=== PATIENT | male | born 1945 | race Caucasian/White ===

== ENCOUNTER → 2016-11-17 | Outpatient (CLI) | payer MEDICARE ==
[~2016-11-17] MED LIST: ACID REDUCER150 MG PO; AMOXICILLIN500 M1 PO; ASPIRIN LO-DOSE81 MG PO; BIAXIN500 MG PO; BUSPAR10 MG PO; CLARITIN10 MG PO; COLACE100 MG PO; FEOSOL325 MG PO; GLUCOPHAGE1000 MG PO; IMDUR30 MG PO; LANTUS (IN100 UNIT/M SUB-Q; LANTUS SOL100 UNIT/1 SUB-Q; LIPITOR80 MG PO; LOPRESSOR25 MG PO; NITROSTAT0.4 MG SL; PLAVIX75 MG PO; PRILOSEC20 MG PO; PRINIVIL (ZESTRI5 MG PO; ZITHROMAX250 MG PO; ZOLOFT50 MG PO
== END | disposition disaster alternative care site (69) ==
LOC: LFPA 09:18
DX: A09 Infectious gastroenteritis and colitis, unspecified (principal)

== ENCOUNTER 2017-02-06 21:30 | Emergency (ER) | payer MEDICARE ==
--- NOTE | ~2017-02-06 | ER ---
PATIENT'S NAME: CHAYITO MOON [facility] AGE: 71 Y [address] ROOM: [place] [address] LOCATION: [facility] ADMIT DATE: 02/06/2017 ER/Outpatient Report DISCHARGE DATE: 02/07/2017 FAMILY PHYSICIAN: Lelo Stephenson ATTENDING PHYSICIAN: Tony Bloom Admission date and time documented on the medical record. I saw the patient at 2140 hours. CHIEF COMPLAINT: Cough, chest pressure, fever. HISTORY OF PRESENT ILLNESS: This patient is a 71-year-old male, who presents with 2-day history of illness. He has had chest pressure, discomfort, sweats, low-grade fever. He had generalized weakness and shakiness. No chest pain now. The patient is short of breath, cough nonproductive. No abdominal pain, nausea, vomiting, or diarrhea. No urinary frequency, urgency, or dysuria. No lightheadedness, dizziness. No syncope. No fall or trauma. No headache, eyes, ears, nose, throat, neck, or spine pain. No joint or muscle swelling, redness, or pain. No skin eruptions or rash. He does have insulin-dependent diabetes mellitus type 2. He does have some anxiety, depression, and bipolar disorder. No neuro changes. HOME MEDICATIONS: See attached medication list. ALLERGIES: NONE. SOCIAL HISTORY: The patient smokes a pack of cigarettes per day. Nondrinker. SIGNIFICANT PAST MEDICAL HISTORY: Atherosclerotic ischemic heart disease with coronary artery disease, insulin- dependent diabetes mellitus type 2, tobacco abuse, dyslipidemia, COPD, depression and anxiety with bipolar disorder. OPERATIONS: Hemorrhoid surgery, open reduction and internal fixation of right femur fracture, cardiac catheterization with PTCA and stenting. Recently, he had a cardiac stress test a couple of days ago, results unknown. REVIEW OF SYSTEMS: All systems reviewed by me are negative with the exception of those discussed PATIENT'S NAME: CHAYITO MOON [facility] AGE: 71 Y [address] ROOM: [place] [address] LOCATION: [facility] ADMIT DATE: 02/06/2017 ER/Outpatient Report DISCHARGE DATE: 02/07/2017 FAMILY PHYSICIAN: Lelo Stephenson ATTENDING PHYSICIAN: Tony Bloom in the history of present illness. PHYSICAL EXAMINATION: VITAL SIGNS: Temperature 100.9, tympanic; pulse 98; respirations 18; blood pressure 164/53; O2 saturation on room air is 97%. HEAD: Normocephalic. EYES, EARS, NOSE, THROAT: Clear. Mucous membranes moist. NECK: Negative. LUNGS: Decreased breath sounds diffusely. Coarse cough. Coarse rhonchi. No wheezes. No rales. HEART: Regular. Pulses are palpable. ABDOMEN: Soft, nondistended, and nontender. Good bowel tones. No organomegaly or abnormal masses palpable. EXTREMITIES: Without peripheral edema, cyanosis, or deformity. Neurovascularly intact. SKIN: Clear. No skin eruptions or rash. IMAGING DATA: Chest x-ray showed no acute infiltrate. We will review x-ray with the radiologist. EKG showed sinus rhythm. No acute ST elevation, ischemic change, or arrhythmia. LABORATORY DATA: Procalcitonin was 0.11. Lactate was 2.1. White count was 12,200 with 71 segs, 8 lymphocytes, 20 monos, hemoglobin is 8.3 with hematocrit 26.3, platelet count is 275,000. PTT was 31, prothrombin time is 11.3 with an INR of 1.08. CMS was normal, except for an elevated glucose at 295, low calcium of 8.4, magnesium was 1.8, CPK was 42. Lhlfe-ff-fjbn cardiac enzymes were normal. Urine showed rare whites, negative reds, rare epithelial cells, negative bacteria per high-powered field. CRP was 17.5. Serum acetone was negative. Venous pH was 7.46. ProBNP was 308. D-dimer was 0.59. I did start the patient on IV normal saline and fluids. I did give him Rocephin 1 g IV here in the emergency department. IMPRESSION: 1. Exacerbation of chronic obstructive pulmonary disease with fever, chills, PATIENT'S NAME: CHAYITO MOON [facility] AGE: 71 Y [address] ROOM: [place] [address] LOCATION: [facility] ADMIT DATE: 02/06/2017 ER/Outpatient Report DISCHARGE DATE: 02/07/2017 FAMILY PHYSICIAN: Lelo Stephenson ATTENDING PHYSICIAN: Tony Bloom sweats, cough, chest pressure. 2. Anemia with a hemoglobin of 8.3 and hematocrit of 26.3. 3. Insulin-dependent diabetes mellitus type 2, blood glucose 295. 4. Atherosclerotic ischemic heart disease with coronary artery disease, history of angina. 5. Tobacco abuse. 6. Dyslipidemia. 7. Depression and anxiety with bipolar disorder. PLAN: I did give the patient Rocephin 1 g IV in the emergency room, hydrated the patient, discharged home. Observation. Activity as tolerated. Continue present home medications and care. Fluid and diet as tolerated. We will send him home on Z-Scott, take as directed. He is to follow up with his personal physician in 2 days on Saturday. Return to the emergency room if needed. Discussion ensued with the patient and his daughter regarding my findings and recommendations, they understand. MD COBY CALDERON/modl /[id number] d: 02/07/17 0513 t: 02/07/17 1809, OUTPATIENT REPORT
[~2017-02-06 21:30] MED LIST changes: -AMOXICILLIN500 M1 PO; -BIAXIN500 MG PO; -COLACE100 MG PO; -FEOSOL325 MG PO; -LANTUS (IN100 UNIT/M SUB-Q; -LOPRESSOR25 MG PO; -PRILOSEC20 MG PO; -ZITHROMAX250 MG PO
[2017-02-06 21:59] LABS: BICARBONATE 24.9 mmol/L (18.0-23.0); PCO2 35 mmHg (35-45); PO2 36 mmHg (80-90)
[2017-02-06 22:02] LABS: BASOPHIL % 0.1 %; HEMATOCRIT 26.3 % (37.0-53.0); HEMOGLOBIN 8.3 g/dL (11.0-16.0); IMMATURE GRANULOCYTE # 0.1 K/uL (0.0-0.3); IMMATURE GRANULOCYTE % 0.5 %; LYMPHOCYTE % 8.4 %; MCH 23.2 pg (27.0-34.0); MCHC 31.6 gm/dL (32.0-36.5); MCV 73.7 fl (83.0-98.0); MONOCYTE # 2.4 K/uL (0.0-1.0); MONOCYTE % 19.7 %; MPV 11.1 fl (9.4-12.4); NEUTROPHIL # (ANC) 8.7 K/uL (1.4-9.0); NEUTROPHIL % 71.3 %; NRBC % 0 /100WBC (0-0.00); PLATELET COUNT 275 K/uL (150-450); RBC 3.57 M/uL (3.50-5.50); WBC 12.2 K/uL (4.0-11.0)
[2017-02-06 22:07] LABS: BILIRUBIN URINE NEGATIVE (NEGATIVE); BLOOD URINE NEGATIVE /UL (NEGATIVE); COLOR URINE YELLOW (YELLOW); GLUCOSE URINE 1000 mg/dL (NEGATIVE); KETONE URINE NEGATIVE (NEGATIVE); LEUKOCYTES URINE NEGATIVE /UL (NEGATIVE); NITRITE URINE NEGATIVE (NEGATIVE); PROTEIN URINE 15 mg/dL (NEGATIVE); TURBIDITY URINE CLEAR (CLEAR); UROBILINOGEN URINE 1 mg/dL (NORMAL)
[2017-02-06 22:11] LABS: INR - (THERAPEUTIC) 1.08 (0.92-1.07); PROTIME 11.3 SECONDS (9.8-11.4); PTT 31 SECONDS (25-32)
[2017-02-06 22:23] LABS: ALK PHOS 134 IU/L (33-138); ALT 18 IU/L (12-78); AST 14 IU/L (10-40); BLOOD UREA NITROGEN 17 mg/dL (6-24); CALCIUM 8.4 mg/dL (8.5-10.5); CHLORIDE 105 mMol/L (96-110); CO2 23 mMol/L (22-32); CPK 42 IU/L (35-332); CREATININE 1.1 mg/dL (0.6-1.3); ESTIMATED GFR (MDRD EQUATION) > 60; MAGNESIUM 1.8 mg/dL (1.8-2.6); SODIUM 135 mMol/L (135-145); TOTAL BILIRUBIN 0.6 mg/dL (0.0-1.5); TOTAL PROTEIN 7.5 g/dL (6.0-8.4)
[2017-02-06 22:26] LABS: BACTERIA URINE NEGATIVE (NEGATIVE); EPITHELIAL URINE RARE #/HPF (NEGATIVE); RBC URINE NEGATIVE #/HPF (NEGATIVE); WBC URINE RARE #/HPF (NEGATIVE)
[2017-02-08] MEDS ORDERED: LANTUS (IN100 UNIT/M SUB-Q (17:06)
[2017-02-08] MEDS ORDERED: ZITHROMAX250 MG PO (17:08)
== END 2017-02-07 00:49 | disposition disaster alternative care site (69) ==
LOC: GMED 21:30
PROVIDERS: Emergency Medicine
DX: J44.1 Chronic obstructive pulmonary disease with (acute) exacerbation (principal); D64.9 Anemia, unspecified; E11.9 Type 2 diabetes mellitus without complications; I25.10 Atherosclerotic heart disease of native coronary artery without angina pectoris; E78.5 Hyperlipidemia, unspecified; F31.9 Bipolar disorder, unspecified; F41.9 Anxiety disorder, unspecified; F17.210 Nicotine dependence, cigarettes, uncomplicated; Z98.890 Other specified postprocedural states; Z79.82 Long term (current) use of aspirin; Z79.899 Other long term (current) drug therapy; Z79.4 Long term (current) use of insulin; Z95.5 Presence of coronary angioplasty implant and graft
CPT/HCPCS: J0696; J7030; J7050

== ENCOUNTER → 2017-02-06 | Outpatient (CLI) | payer MEDICARE | END | disposition disaster alternative care site (69) | LOC: GAMB 21:13 | DX: E11.65 Type 2 diabetes mellitus with hyperglycemia (principal); R07.89 Other chest pain; Z79.82 Long term (current) use of aspirin; Z79.899 Other long term (current) drug therapy | CPT/HCPCS: A0425; A0427 ==

== ENCOUNTER → 2017-02-11 | Day surgery (SDC) | payer MEDICARE ==
[~2017-02-11] VITALS: Ht 175.3 cm; Wt 79.3 kg
[~2017-02-11] MED LIST changes: +AMOXICILLIN500 M1 PO; +BIAXIN500 MG PO; +COLACE100 MG PO; +FEOSOL325 MG PO; +LANTUS (IN100 UNIT/M SUB-Q; +LOPRESSOR25 MG PO; +PRILOSEC20 MG PO; +ZITHROMAX250 MG PO
== END ==
LOC: GPOC 02-08 17:00 → GEND 07:55 → GPOC 17:00
PROC: 0DB88ZX Excision of Small Intestine, Via Natural or Artificial Opening Endoscopic, Diagnostic (ICD-10-PCS; principal; 2017-02-11)
PROC: 0DB68ZX Excision of Stomach, Via Natural or Artificial Opening Endoscopic, Diagnostic (ICD-10-PCS; 2017-02-11)
PROC: 0DBH8ZX Excision of Cecum, Via Natural or Artificial Opening Endoscopic, Diagnostic (ICD-10-PCS; 2017-02-11)
DX: D12.0 Benign neoplasm of cecum (principal); K29.60 Other gastritis without bleeding; K57.30 Diverticulosis of large intestine without perforation or abscess without bleeding; D64.9 Anemia, unspecified; I10 Essential (primary) hypertension; I25.10 Atherosclerotic heart disease of native coronary artery without angina pectoris; J43.9 Emphysema, unspecified; K21.9 Gastro-esophageal reflux disease without esophagitis; E11.9 Type 2 diabetes mellitus without complications; E78.00 Pure hypercholesterolemia, unspecified; F17.210 Nicotine dependence, cigarettes, uncomplicated; Z79.82 Long term (current) use of aspirin; Z79.4 Long term (current) use of insulin; Z79.899 Other long term (current) drug therapy
CPT/HCPCS: J2001; J7030

== ENCOUNTER 2017-02-13 09:00 | Day surgery (SDC) | payer MEDICARE ==
[~2017-02-13] VITALS: Ht 175.3 cm; Wt 81.0 kg
[~2017-02-13 09:00] MED LIST changes: -AMOXICILLIN500 M1 PO; -BIAXIN500 MG PO; -COLACE100 MG PO; -FEOSOL325 MG PO; -LOPRESSOR25 MG PO; -PRILOSEC20 MG PO
== END 2017-02-13 13:05 | disposition disaster alternative care site (69) ==
LOC: GSIP 09:00 → GOPP 09:00 → GEND 09:00
PROC: 0DBL8ZX Excision of Transverse Colon, Via Natural or Artificial Opening Endoscopic, Diagnostic (ICD-10-PCS; principal; 2017-02-13)
PROC: 0DBK8ZX Excision of Ascending Colon, Via Natural or Artificial Opening Endoscopic, Diagnostic (ICD-10-PCS; 2017-02-13)
DX: D12.2 Benign neoplasm of ascending colon (principal); D12.3 Benign neoplasm of transverse colon; E11.9 Type 2 diabetes mellitus without complications; K21.9 Gastro-esophageal reflux disease without esophagitis; I25.10 Atherosclerotic heart disease of native coronary artery without angina pectoris; I10 Essential (primary) hypertension; E78.00 Pure hypercholesterolemia, unspecified; J43.9 Emphysema, unspecified; F41.9 Anxiety disorder, unspecified; F32.9 Major depressive disorder, single episode, unspecified; E78.5 Hyperlipidemia, unspecified; F17.210 Nicotine dependence, cigarettes, uncomplicated; Z98.890 Other specified postprocedural states; Z79.82 Long term (current) use of aspirin; Z79.4 Long term (current) use of insulin; Z79.891 Long term (current) use of opiate analgesic; Z79.899 Other long term (current) drug therapy
CPT/HCPCS: J1610; J2001; J7030

== ENCOUNTER 2017-02-20 10:53 | Inpatient (IN) | payer MEDICARE ==
[~2017-02-20] VITALS: Ht 175.3 cm; Wt 78.6 kg
--- NOTE | ~2017-02-20 | ER ---
PAT[facility]: [facility] AGE: 71 Y [address] ROOM: [place] [id number] LOCATION: [facility] ADMIT DATE: 02/20/2017 ER/Outpatient Report DISCHARGE DATE: FAMILY PHYSICIAN: Lelo Stephenson ATTENDING PHYSICIAN: Farzaneh SUAZO Time of Arrival: 1053 hours. Time of Evaluation: 1053 hours. CHIEF COMPLAINT: Rectal bleeding and syncope. HISTORY OF PRESENT ILLNESS: The patient is a 71-year-old male who presents to the emergency department today with a chief complaint of syncope and rectal bleeding. He has had bright red blood per rectum for few days. It is progressively worsened today. He did have a syncopal episode when the patient passed out. He does report subjective fevers. No chills. Subsequent nausea. No vomiting. No diarrhea or constipation. No problems urinating. No back pain. No cough. No chest pain. No shortness of breath. Does have mild headache. The patient recently underwent an EGD and colonoscopy on 02/11/2017. PAST MEDICAL HISTORY: 1. Atherosclerotic coronary artery disease. 2. Insulin-dependent diabetes mellitus, type 2. 3. Dyslipidemia. 4. COPD. 5. Depression. 6. Anxiety. 7. Bipolar. 8. H. pylori. 9. Gastritis. PAST SURGICAL HISTORY: 1. Hemorrhoid. 2. ORIF, right femur. 3. Heart catheterization with PTCA and stenting. 4. Cardiac stress test. SOCIAL HISTORY: The patient smokes half pack per day for 60 years. Denies any alcohol or illicit drug use. ALLERGIES: NO KNOWN DRUG ALLERGIES. PATIENT'S NAME: [facility] AGE: 71 Y [address] ROOM: [id number] [place] [id number] LOCATION: [facility] ADMIT DATE: 02/20/2017 ER/Outpatient Report DISCHARGE DATE: FAMILY PHYSICIAN: Lelo Stephenson ATTENDING PHYSICIAN: Farzaneh SUAZO MEDICATIONS: Please see list. PRIMARY CARE DOCTOR: MARCIN Aguilar REVIEW OF SYSTEMS: All systems are reviewed by myself and are negative with the exception of those discussed in the HPI and past medical history. PHYSICAL EXAMINATION: VITAL SIGNS: Weight 79.5 kg. Blood pressure 117/62, pulse 82, respiratory rate 17, temperature 95.9, and oxygen saturation 98% on room air. GENERAL: The patient is a 71-year-old male, who appears pale. HEENT: Normocephalic and atraumatic. Pupils are equal, round, and reactive to light. Mucous membranes moist. Conjunctivae are pale. NECK: Supple. There is no nuchal rigidity. CARDIOVASCULAR: Regular rate and rhythm. No murmurs, rubs, or gallops. LUNGS: Clear to auscultation bilaterally. No wheezes, rales, or rhonchi. ABDOMEN: Soft, nontender, and nondistended. No rebound, rigidity, or guarding. MUSCULOSKELETAL: The patient moves all 4 extremities. SKIN: Warm and dry. LABORATORY DATA AND X-RAYS: EKG is obtained, is interpreted by myself at 1114 hours shows sinus rhythm with a rate of 80, normal axis, KS interval 235, QTc of 461, no ST elevation, ST depression, or T-wave inversion. CBC: White blood cell count 12.7, hemoglobin 5.0, hematocrit 17.4, and platelets 503,000. PTT is normal. PTT is 11.7. INR is 1.1. CT scan of the brain is obtained which is negative. Lactate is 5.7. CMP; unremarkable except for chloride of 114, CO2 is 17, BUN 26, creatinine normal, and glucose 201. Cardiac enzymes are normal. Procalcitonin is less than 0.05. CT scan of the brain is obtained. I have discussed the results with the radiologist, shows no acute process. IMPRESSION: 1. Acute blood loss anemia. 2. Gastrointestinal bleed. 3. Recent esophagogastroduodenoscopy and colonoscopy. 4. Lactic acidosis. 5. Critical care time of 32 minutes. 6. Initial visit. EMERGENCY DEPARTMENT COURSE: PATIENT'S NAME: CHAYITO MOON [facility] AGE: 71 Y [address] ROOM: [address] [address] LOCATION: [facility] ADMIT DATE: 02/20/2017 ER/Outpatient Report DISCHARGE DATE: FAMILY PHYSICIAN: Lelo Stephenson ATTENDING PHYSICIAN: Farzaneh SUAZO The patient was brought back to the examination room. Seen and evaluated by myself. IV was established. Laboratory analysis and imaging are obtained as described above. I have discussed other results with the patient. The patient did have a syncopal episode when EMS arrived. The patient is typed and crossed for 4 units. He is written for transfusion. He is given a liter of normal saline. I have discussed the results with the patient as well as his family. The patient does report still feeling weak. I have discussed the case with Dr. Suazo. He has seen and evaluated the patient down here in the emergency department. Dr. Gonzalez was consulted. He has recommended ICU admission for further evaluation, treatment, and management. The patient did require a cumulative critical care time of 32 minutes. This did include talking with family, talking with consultants, ordering tests, reviewing tests, as well as close monitoring of the patient with active GI bleeding and hemoglobin of 5.0. DISPOSITION: The patient is admitted to the intensive care unit in stable condition. DO DARIO SAMUELS/modl /[id number] d: 02/20/172145 t: 02/25/172032, OUTPATIENT REPORT
--- NOTE | ~2017-02-20 | DS ---
PATIENT'S NAME: CHAYITO MOON [facility] AGE: 71 Y [address] ROOM: [id number] [place] [address] LOCATION: [facility] ADMIT DATE: 02/20/2017 Discharge Summary DISCHARGE DATE: 02/22/2017 FAMILY PHYSICIAN: Lelo Stephenson ATTENDING PHYSICIAN: Farzaneh Suazo FINAL/DISCHARGE DIAGNOSES: 1. Acute lower gastrointestinal bleed. 2. Acute blood loss anemia. 3. Coronary artery disease. 4. Diabetes mellitus, type 2. 5. Dyslipidemia. CONSULTATIONS: Consultants on the case: Dr. Gonzalez. PROCEDURES PERFORMED: Colonoscopy and EGD per Dr. Gonzalez. Please refer to those reports. HOSPITAL COURSE: Please see details of admission in H and P by Dr. Suazo. Briefly, the patient is a 71-year-old male, who presented with lightheadedness and acute anemia. The patient recently had an EGD and colonoscopy done with polyp removal. The patient's aspirin and Plavix were resumed 2 days postprocedure as per his history of coronary artery disease and stent placement. On admission, the patient did undergo a tagged red blood cell bleeding scan and was transfused 4 units. H and Hs were monitored every hour initially, and GI consultation was obtained. Protonix was utilized for GI prophylaxis. We did get routine lactate levels due to severe elevation. The patient's diabetes was covered with sliding scale insulin. His Levemir was cut in half secondary to his n.p.o. status. GI evaluation was done on 02/20/2017. Colonoscopy was anticipated on the , and the patient was prepped adequately prior to procedure. Please refer to that operative note. Postprocedure, patient was started back on a clear liquid diet. His laboratories were serially monitored. We continued symptomatic treatment further on the and on the , the patient was stable. His hemoglobin had gone from 9.2 to 8.4 to 7.8 to 8.5. It was felt that the patient could safely be discharged. He would not be receiving any anticoagulation or antiplatelet therapy for at least one week post-hospitalization. Dr. Gonzalez visited with the patient about his condition. Stated that he had also been in touch with Cardiology and the plan was implemented. The patient was able to verbalize understanding of these discharge instructions. LABORATORY DATA AND IMAGING STUDIES: Diagnostics: Single view of the chest shows a small left pleural effusion with adjacent lung consolidation in the lateral lower right lung. Heart size and pulmonary PATIENT'S NAME: CHAYITO MOON [facility] AGE: 71 Y [address] ROOM: [id number] [place], [place] [address] LOCATION: [facility] ADMIT DATE: 02/20/2017 Discharge Summary DISCHARGE DATE: 02/22/2017 FAMILY PHYSICIAN: Lelo Stephenson ATTENDING PHYSICIAN: Farzaneh Suazo vascularity within normal limits. CT of the head without contrast was within normal limits. Bleeding scan was positive for gastrointestinal bleed with bleeding visualized on the right side of the colon, appearing to originate in the area of the cecum or adjacent ascending colon. Accu-Cheks ranged from 85 to 223. Lactate level on admission was 5.7. It trended down to 1.3 on the day of discharge. On admission, sodium was 144, potassium 5.0, chloride 114, bicarbonate 17, glucose was 201, BUN 26, and creatinine 1.0. Cardiac enzymes and proBNP were all within normal limits. Hemoglobin A1c was 6.5. On admission, white blood cell count was 12.7, hemoglobin was 5.0, hematocrit was 17.4, and platelets were 503,000. Prothrombin time of 11.7, INR of 1.1. Post transfusion, hemoglobin was 9.2, had trended back down to 7.8, and was 8.5, on the day of discharge. DISCHARGE INSTRUCTIONS: 1. The patient was discharged to home. 2. Diet is to advance as tolerated. 3. Activity: No straining and no driving until followup appointment. 4. The patient will see MARCIN Aguilar on 02/27/2017 at 2:30 p.m. 5. He will follow up with Dr. Gonzalez in one year for a repeat colonoscopy. DISCHARGE MEDICATIONS: 1. Amoxicillin 1000 mg twice daily. 2. Lipitor 80 mg daily. 3. Biaxin 500 mg twice daily. 4. Lantus 14 units subcutaneous twice daily. 5. Prilosec 40 mg daily. 6. Metformin 1000 mg twice daily. 7. BuSpar 30 mg daily. 8. Zoloft 50 mg daily. 9. Claritin 10 mg daily. 10. Aspirin 81 mg, hold until re-evaluation, but may resume 81 mg daily in 1 week. 11. Plavix 75 mg. The patient is to hold indefinitely until Cardiology follow up. 12. Imdur 30 mg daily. 13. Nitrostat 0.4 mg sublingual as needed. 14. Lopressor 25 mg twice daily. 15. Ferrous sulfate 325 mg 1 p.o. twice daily. 16. Colace 100 mg p.o. b.i.d. p.r.n. We do appreciate participating in this patient's care, and thank you very much for the ability to serve him while hospitalized at [facility]. Time spent coordinating details of discharge was 37 minutes of which was spent PATIENT'S NAME: CHAYITO MOON [facility] AGE: 71 Y [address] ROOM: [id number] [place], [place] [address] LOCATION: [facility] ADMIT DATE: 02/20/2017 Discharge Summary DISCHARGE DATE: 02/22/2017 FAMILY PHYSICIAN: Lelo Stephenson ATTENDING PHYSICIAN: Farzaneh Suazo coordinating with consulting physicians and Care Management, completion of medication reconciliation, and education to the patient and family on the above-mentioned diagnoses. MARCIN DYER FOR JULIAN CEE MD JAN/modl /[id number] d: 02/23/17 1453 t: 03/12/17 1531, DISCHARGE SUMMARY
--- NOTE | ~2017-02-20 | HP ---
PATIENT'S NAME: SARAI [facility] AGE: 71 Y [address] ROOM: [place] [address] LOCATION: [facility] ADMIT DATE: 02/20/2017 History & Physical DISCHARGE DATE: FAMILY PHYSICIAN: Lelo Stephenson ATTENDING PHYSICIAN: Farzaneh RON DATE OF SERVICE: CHIEF COMPLAINT: Acute blood loss anemia secondary to GI bleed. HISTORY OF PRESENT ILLNESS: The patient is a 71-year-old gentleman with past medical history of CAD, status post last stent placed 4 years ago, on aspirin and Plavix; diabetes mellitus type 2; and hypertension, who presents here with GI bleed. The patient reports that for the past 2 days or so, he was having some melanotic stools initially, and today he reports of bright red blood per rectum. The patient reports that he had multiple episodes of bright red blood per rectum today and also was orthostatic. He said the patient reports that he could not stand up due to dizziness. The patient was found by his daughter today at home crawling on the floor as he cannot stand up due to dizziness. The patient was brought into the emergency department. On initial evaluation, the patient was found to have a hemoglobin level of 5. The patient currently denies chest pain, shortness of breath, fever, chills, abdominal pain, diarrhea, and productive cough. Of note, the patient had EGD done on February 11, which showed gastritis on the antrum and the other findings were normal. The patient also had a colonoscopy done on February 13, which shows diverticulosis with large polyp seen in the ascending colon. The polyp was approximately 2 cm and had cold biopsy polypectomy. Before these procedures, the patient's aspirin and Plavix were held; however, his aspirin and Plavix were continued after 2 days of this procedure. Also of note, the patient reports that he was started on antibiotics, which I presumed to be for H. pylori. He is started on Biaxin, amoxicillin, and Prilosec. The patient reports that he was called in with the biopsy results and was told to take these medications. MEDICAL HISTORY: Diabetes mellitus type 2; hypertension; CAD, status post stent; also tobacco use. SURGICAL HISTORY: Colonoscopy, right femur fracture, EGD, and wrist surgery. FAMILY HISTORY: PATIENT'S NAME: SARAI [facility] AGE: 71 Y [address] ROOM: [address] [place] [address] LOCATION: [facility] ADMIT DATE: 02/20/2017 History & Physical DISCHARGE DATE: FAMILY PHYSICIAN: Lelo Stephenson ATTENDING PHYSICIAN: Farzaneh RON Father had throat cancer. Mother had diabetes mellitus type 2. SOCIAL HISTORY: The patient reports that he has been smoking cigarettes since the age 6. The patient currently is 71-year-old. 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 MEDICATIONS: Currently being reconciled. REVIEW OF SYSTEMS: All systems have been reviewed and everything is negative except what mentioned in the HPI. PHYSICAL EXAMINATION: VITAL SIGNS: Temperature 95 degrees Fahrenheit, blood pressure 117/62, heart rate of 82, respirations of 17. GENERAL APPEARANCE: The patient looks pale, lying on bed, in no acute distress. HEAD: Normocephalic, atraumatic. EYES: Pale sclerae. NOSE: No nasal discharge. EARS: No ear discharge. MOUTH: Dry oral mucosa. CHEST: Clear to auscultation bilaterally. HEART: Regular rate and rhythm. No murmurs, rubs, or gallops. ABDOMEN: Soft, nontender, and nondistended. Bowel sounds present. SKIN: Warm to touch. MUSCULOSKELETAL: Range of motion intact. No obvious joint effusion. INSOLE RASPER: Alert and oriented x3. Motor and sensory grossly intact. LABORATORY DATA: Lactate 5.7, troponin x1 negative, CPK 34, proBNP 50, hemoglobin 5, platelet 503, hematocrit 17, MCV 75.7, sodium 144, potassium of 5, CO2 of 17, creatinine 1, INR 1, protime 11.7, PTT 25. ASSESSMENT AND PLAN: 1. Acute blood loss anemia, etiology most likely secondary to lower gastrointestinal bleed secondary to aspirin and Plavix use on the phase of recent polypectomy. We will type and screen. We will transfuse 4 units of packed red blood cells to keep hemoglobin greater than 8, as the patient has a history of coronary artery disease. The patient's last cardiac cath with stenting was 4 years ago, therefore we will discontinue Plavix, and we will continue aspirin tomorrow. GI consult acquired. Discussed with Dr. Gonzalez. To have a stat RBC tagged bleeding scan. To PATIENT'S NAME: CHAYITO MOON [facility] AGE: 71 Y [address] ROOM: [address] [place] [address] LOCATION: [facility] ADMIT DATE: 02/20/2017 History & Physical DISCHARGE DATE: FAMILY PHYSICIAN: Lelo Stephenson ATTENDING PHYSICIAN: Farzaneh RON keep the patient n.p.o. To continue IV fluids and to acquire an H and H every 6 hours. Once again, to keep hemoglobin greater than 8. Also, since the patient has a history of gastritis and presumably Helicobacter pylori, we will also start the patient on Protonix 40 mg IV b.i.d. 2. Gastrointestinal bleed. See problem #1. 3. Orthostatic hypotension, etiology from acute blood loss. The patient will receive fluid. We will continue fluid and blood transfusion. We will hold all antihypertensive medications. 4. History of coronary artery disease. Last cath done in September 2016, shows patent stent and small vessel disease. Last stenting was 4 years ago, therefore we will discontinue Plavix. To continue aspirin and statin. 5. Diabetes mellitus type 2. The patient is on 14 units b.i.d. of Lantus. We will decrease to 7 units as the patient is going to be on n.p.o. 7 units b.i.d. We will have Accu-Chek and sliding scale insulin. 6. Tobacco use, 3-10 minutes was spent on tobacco counseling. We will offer nicotine patch. The patient is not ready to stop smoking. 7. Dehydration. IV fluid and packed red blood cells. 8. Presumed Helicobacter pylori. To continue amoxicillin, Biaxin, and PPI. Greater than 30 minutes of critical care was spent on the patient care. The patient is severely sick with hemoglobin of 5 and lactate of 5, and also signs of orthostatic hypertension. Case was discussed with Dr. Gonzalez and Dr. Jiang. We will admit the patient to ICU to transfuse 4 units of packed red blood cells, to monitor hemoglobin every 4 hours, and also acquire bleeding scan, tagged. The patient's and family's question were answered with satisfaction. On admission, code status, full code. MD BELLE RIVAS/anil /[id number] D: [id number] T: [id number] HISTORY & PHYSICAL
--- NOTE | ~2017-02-20 | CON ---
[facility] AGE: 71 Y [address] ROOM: [place] [address] LOCATION: GICU ADMIT DATE: 02/20/2017 Consultation DISCHARGE DATE: FAMILY PHYSICIAN: Lelo Stephenson ATTENDING PHYSICIAN: Farzaneh SUAZO DATE OF CONSULTATION: 02/20/2017 REFERRING PHYSICIAN: Kelly Gonzalez MD REFERRING PHYSICIAN: Farzaneh Sauzo MD CONSULTING PHYSICIAN: Kelly Gonzalez MD REASON FOR CONSULTATION: GI bleeding. HISTORY OF PRESENT ILLNESS: The patient is a pleasant 71-year-old white male who was referred initially to endoscopy for evaluation of iron-deficiency anemia. He was found to have multiple polyps including a large 2 cm polyp in the ascending colon. He had taken recent clopidogrel. In view of this, the procedure was delayed by about five days. Another colonoscopy was done by Dr. Gomez. The polyp was removed after endoscopic mucosal resection. Clip was applied. The patient did fairly well and was asymptomatic for the next two to three days. The biopsy showed adenoma. Subsequent to that, he developed melena and some dark stools. He also had some incontinence. He was found to have a hemoglobin of 5 and admitted for further management. He remained, however, hemodynamically stable. The patient denies any significant abdominal discomfort. ALLERGIES: NO KNOWN DRUG ALLERGIES. PAST MEDICAL HISTORY: Significant for depression, history of anxiety, type 2 diabetes mellitus without complication, hypertension, hyperlipidemia, history of COPD with some exacerbation recently. SOCIAL HISTORY: He is no drinker. No drug use. Takes about a pack of cigarettes a day. CURRENT MEDICATIONS: 1. Aspirin. 2. Atorvastatin. PAT[facility]'S NAME: [facility] AGE: 71 Y [address] ROOM: [address] [place], [place] [id number] LOCATION: GICU ADMIT DATE: 02/20/2017 Consultation DISCHARGE DATE: FAMILY PHYSICIAN: Lelo Stephenson ATTENDING PHYSICIAN: Farzaneh SUAZO 3. Plavix. 4. Risperidone. 5. Isosorbide mononitrate. 6. Lisinopril. 7. Loratadine. 8. Metformin. 9. Lantus. 10. Rimantadine. 11. Sertraline. FAMILY HISTORY: Heart disease in sister at age 55, CVA in the mother and sister, diabetes mellitus type 2 in mother and sister. His father and brother had esophageal carcinoma. PAST SURGICAL HISTORY: Significant for femur fracture on the right side, left heart cardiac cath in 2017, showed diffuse disease. Carotid surgery. He also has three coronary stents placed and the last stent was in 2008 apparently. His last screening colonoscopy was in 2012. REVIEW OF SYSTEMS: A detailed 10-point review of system was done. Found to be negative other than what is mentioned in the history of present illness and past medical history. PHYSICAL EXAM: GENERAL: Today he is alert and awake, appears to be in no acute distress. VITAL SIGNS: Temperature 97.9, pulse 82 per minute, respirations 14, and blood pressure is 104/54. EYES: Some pallor. No icterus. ENT: Oral cavity is normal. Nasal passages are clear. NECK: No masses are felt. No thyromegaly is felt. CHEST:Clear to auscultation bilaterally.. CARDIOVASCULAR: S1 and S2. ABDOMEN: Soft and nontender. I do not elicit any masses. MUSCULOSKELETAL: No obvious deformities seen. NEUROLOGICAL: Nonfocal. LABORATORY DATA: Labs done today show a bleeding scan is positive in the ascending colon and cecum. Chest x-ray shows small left pleural effusion with adjacent lung consolidation in the lower lateral right lung. CT of the brain is unremarkable. Complete metabolic screen shows sodium 145, potassium 5.0, chloride 114, bicarb is 17, BUN is 26, creatinine is 1. Albumin is 2.5, total bilirubin is 0.4, ALT of 16, AST of 14, alkaline PATIENT'S NAME: [facility] AGE: 71 Y [address] ROOM: [id number] [place], [place] [id number] LOCATION: [facility] ADMIT DATE: 02/20/2017 Consultation DISCHARGE DATE: FAMILY PHYSICIAN: Lelo Stephenson ATTENDING PHYSICIAN: Farzaneh SUAZO phosphatase is 113. CK-MB is negative. ProBNP is 55 which is within the normal range. Complete blood count showed WBC of 12.7, hemoglobin 5, hematocrit 17.4, platelets 503. IMPRESSION: The patient with a history of polypectomy approximately a week ago. Now presenting with what appears to be a post polypectomy bleed. This was a large flat polyp. It was managed well with clip application as well as initially holding off Plavix for at least five days prior to polypectomy. The patient, however, does present with bleed. He does not appear to have an acute abdomen. RECOMMENDATIONS: I have suggested that the patient be transfused as needed. Hemoglobin should be kept around 10. In addition, his hemoglobin is to be followed. I will be performing a colonoscopy on the patient in the morning. The procedure of colonoscopy was explained to the patient in detail. All the risks including, but not limited to, bleeding, perforation, possible need for surgery explained. Informed consent was obtained. I specifically mentioned the risk of failure to control the bleeding leading to a surgical intervention. He does seem to understand that and has agreed to do the procedure. MD ALEJANDRA CHO/anil /[id number] d: 02/21/17 0051 t: 02/22/17 1655, CONSULTATION REPORT
[~2017-02-20 10:53] MED LIST changes: -AMOXICILLIN500 M1 PO; -BIAXIN500 MG PO; -COLACE100 MG PO; -FEOSOL325 MG PO; -LOPRESSOR25 MG PO; -PRILOSEC20 MG PO
[2017-02-20 11:21] LABS: INR - (THERAPEUTIC) 1.11 (0.92-1.07); PROTIME 11.7 SECONDS (9.8-11.4); PTT 25 SECONDS (25-32)
[2017-02-20 11:23] LABS: BASOPHIL % 0.1 %; EOSINOPHIL % 0.3 %; IMMATURE GRANULOCYTE # 0.1 K/uL (0.0-0.3); IMMATURE GRANULOCYTE % 0.9 %; LYMPHOCYTE # 1.8 K/uL (0.8-4.0); LYMPHOCYTE % 14.5 %; MCV 75.7 fl (83.0-98.0); MONOCYTE # 0.9 K/uL (0.0-1.0); MONOCYTE % 7.2 %; MPV 10.7 fl (9.4-12.4); NEUTROPHIL # (ANC) 9.8 K/uL (1.4-9.0); NRBC % 0 /100WBC (0-0.00); RDW-CV 17.7 % (11.9-14.6); WBC 12.7 K/uL (4.0-11.0)
[2017-02-20 11:31] LABS: HEMATOCRIT 17.4 % (37.0-53.0); MCH 21.7 pg (27.0-34.0); MCHC 28.7 gm/dL (32.0-36.5); PLATELET COUNT 503 K/uL (150-450)
[2017-02-20 11:34] LABS: ALBUMIN 2.5 gm/dL (3.5-5.0); ALK PHOS 113 IU/L (33-138); ALT 16 IU/L (12-78); AST 14 IU/L (10-40); BLOOD UREA NITROGEN 26 mg/dL (6-24); CALCIUM 7.5 mg/dL (8.5-10.5); CHLORIDE 114 mMol/L (96-110); CPK 34 IU/L (35-332); ESTIMATED GFR (MDRD EQUATION) > 60; SODIUM 144 mMol/L (135-145); TOTAL PROTEIN 5.2 g/dL (6.0-8.4)
[2017-02-20 11:35] LABS: CO2 17 mMol/L (22-32); TOTAL BILIRUBIN 0.4 mg/dL (0.0-1.5)
--- NOTE | 2017-02-20 17:02 | NUR ---
Significant Event: Patient is A&O X3, follows all commands. Pupils are equal and reactive. SBP have been low 100's-120's, MAP's have been 70's-80's. Patient is in SR with HR 70's-80's. Patient is on RA with o2 sats 98-100%. Lung sounds are clear and diminished. HGB was 5. Have given 2 out of the 4 units of PRBC. Did a red tag study. Follow up:
[2017-02-20 23:14] LABS: HEMATOCRIT 27.8 % (37.0-53.0); HEMOGLOBIN 9.2 g/dL (11.0-16.0)
--- NOTE | 2017-02-21 05:45 | NUR ---
Significant Event: PT ARRIVED TO FLOOR AT 2200 FROM ICU. ALERT AND ORIENTED X3. PLEASANT AND COOPERATIVE. HR 80S, SBP 92-123. ON RA. MULTIPLE BLOODY STOOLS. BOWEL PREP FINISHED AT 0230, COLONOSCOPY THIS AM. ACHS ACCU CHECKS. R AND L AC PIV'S. UP WITH 1A. Follow up:
[2017-02-21 06:19] LABS: HEMATOCRIT 25.8 % (37.0-53.0); HEMOGLOBIN 8.4 g/dL (11.0-16.0)
--- NOTE | 2017-02-21 11:18 | NUR ---
1015 RN informs me that eJsús is out of the room for his colonoscopy and will be back later today. Reviewed his information, it appears that he lives in [place] and his PCP is . I would anticipate that he will return back home upon dismissal, but will meet with him later this afternoon to confirm this. CM to continue to follow and assist.
[2017-02-21] MEDS ORDERED: PRILOSEC20 MG PO (12:27)
[2017-02-21] MEDS ORDERED: AMOXICILLIN500 M1 PO (12:28)
[2017-02-21] MEDS ORDERED: BIAXIN500 MG PO (12:29)
[2017-02-21] MEDS ORDERED: LOPRESSOR25 MG PO (12:30)
--- NOTE | 2017-02-21 16:59 | NUR ---
PT IS AOX3. PT IN NSR WITH HR'S 70s-80s. SLIGHTLY EDEMATOUS IN THE R)HAND. PT IS A SMOKER BUT IS ON RA AND IS SATING AT 100%. LUNG SOUNDS CLEAR AND DIM THROUGHOUT. ALL OTHER VSS. NO CURRENT SKIN ISSUES. HAS A L)AC SL AND A R)AC RUNNING NS AT 100ML/HR. NO CHANGES IN PT CONDITION THROUGHOUT SHIFT.
[2017-02-21 19:04] LABS: HEMATOCRIT 24.1 % (37.0-53.0)
[2017-02-21 19:05] LABS: HEMOGLOBIN 7.8 g/dL (11.0-16.0)
--- NOTE | 2017-02-22 02:35 | NUR ---
Significant Event: Patient is A/O x 3. Follows commands. Moves all extremities spontaneously. SBA. Room air. No loose stools this shift. VSS. Afebrile. Advanced to solid food this shift, tolerated well. No complaints of pain. Follow up: Possible discharge today?
[2017-02-22 06:11] LABS: HEMATOCRIT 25.8 % (37.0-53.0); HEMOGLOBIN 8.5 g/dL (11.0-16.0)
[2017-02-22] MEDS ORDERED: FEOSOL325 MG PO (14:39)
[2017-02-22] MEDS ORDERED: COLACE100 MG PO (14:39)
== END 2017-02-22 15:05 | disposition disaster alternative care site (69) | DRG 920 ==
LOC: GMED 10:53 → GICU 12:34 → GPCU 12:34 → GICU 12:34
PROVIDERS: Emergency Medicine; Internal Medicine; ADMIT Internal Medicine
PROC: 30233N1 Transfusion of Nonautologous Red Blood Cells into Peripheral Vein, Percutaneous Approach (ICD-10-PCS; principal; 2017-02-20)
PROC: 0DJD8ZZ Inspection of Lower Intestinal Tract, Via Natural or Artificial Opening Endoscopic (ICD-10-PCS; 2017-02-21)
DX: K91.840 Postprocedural hemorrhage of a digestive system organ or structure following a digestive system procedure (principal); K92.2 Gastrointestinal hemorrhage, unspecified; A04.8 Other specified bacterial intestinal infections; E11.9 Type 2 diabetes mellitus without complications; D50.9 Iron deficiency anemia, unspecified; E78.5 Hyperlipidemia, unspecified; I10 Essential (primary) hypertension; D62 Acute posthemorrhagic anemia; I25.10 Atherosclerotic heart disease of native coronary artery without angina pectoris; I95.1 Orthostatic hypotension; Z95.5 Presence of coronary angioplasty implant and graft; Z79.82 Long term (current) use of aspirin; F17.210 Nicotine dependence, cigarettes, uncomplicated; E86.0 Dehydration; Z79.4 Long term (current) use of insulin; K64.8 Other hemorrhoids; K64.4 Residual hemorrhoidal skin tags
CPT/HCPCS: A9560; C9113; J7030; J7050; P9016

== ENCOUNTER → 2017-02-20 | Outpatient (CLI) | payer MEDICARE ==
[~2017-02-20] MED LIST changes: +AMOXICILLIN500 M1 PO; +BIAXIN500 MG PO; +COLACE100 MG PO; +FEOSOL325 MG PO; +LOPRESSOR25 MG PO; +PRILOSEC20 MG PO
== END | disposition disaster alternative care site (69) ==
LOC: GAMB 10:29
DX: K62.5 Hemorrhage of anus and rectum (principal); K92.9 Disease of digestive system, unspecified; E11.9 Type 2 diabetes mellitus without complications; F41.8 Other specified anxiety disorders; R61 Generalized hyperhidrosis; R53.1 Weakness; Z95.828 Presence of other vascular implants and grafts; Z79.84 Long term (current) use of oral hypoglycemic drugs; Z79.82 Long term (current) use of aspirin; Z79.02 Long term (current) use of antithrombotics/antiplatelets; Z79.2 Long term (current) use of antibiotics; Z79.899 Other long term (current) drug therapy
CPT/HCPCS: A0422; A0425; A0427; J7030